=== PATIENT | female | born 1945 ===

== ENCOUNTER 2017-09-29 12:13 | Observation (INO) | payer MEDICARE ==
[2017-09-29] MEDS ORDERED: Sodium Chloride 0.9% 1,000 ML IV SCH ×2 (13:00→13:21)
[2017-09-29 13:16] LABS: HEMOGLOBIN 13.3 g/dL (12.0-16.0); MEAN CELL VOLUME 90.8 fl (81.0-99.0); RBC 4.44 Mil/uL (3.80-5.20); RED CELL DISTRIBUTION WIDTH 14.4 % (11.5-14.5); WHITE BLOOD COUNT 10.2 K/uL (4.8-10.8)
[2017-09-29 13:29] LABS: ALB/GLOB RATIO 1.2 (1.0-2.1); ALBUMIN 4.3 g/dL (3.5-5.0); ALT/SGPT 21 U/L (9-52); AST/SGOT 28 U/L (14-36); BLOOD UREA NITROGEN 16 mg/dl (7-17); CALCIUM 9.7 mg/dL (8.4-10.2); GFR AFRICAN-AMERICAN > 60; GFR NON-AFRICAN AMERICAN > 60
--- NOTE | 2017-09-29 13:41 | ED PDOC ---
Syncope/Near Syncope/Dizziness Time Seen by Provider: 09/29/17 12:31 Chief Complaint (Nursing): Dizziness/Lightheaded Chief Complaint (Provider): Patient complains of multiple episodes of dizziness , syncope and nausea History Per: Patient, Family History/Exam Limitations: no limitations Onset/Duration Of Symptoms: Intermittent Episodes Current Symptoms Are (Timing): Intermittent Episodes Current Symptoms: Lethargia and generalized weakness Number Of Syncopal Episodes: 3 Activity At Onset Of Symptoms: Walking, Had Just Stood up Associated Symptoms Preceding Syncopal Episode: Worse With Standing. denies: Vertigo Seizure Or Post-ictal Symptoms: None Possible Causative Factor(s): Lightheaded W/Standing, Lightheaded W/Exertion Fall Associated With With Symptoms: No Severity: Mild Pain Scale Rating Of: 0 Additional History Per: Patient, Family Additional Complaint(s): 72F with PMHx HTN presents to ED with her son and daughter complaining of multiple episodes of dizziness, syncope and associated vomiting. Patient states that she first began experiencing these episodes three weeks ago when she should stood up suddenly and immediately felt dizzy and nauseous. Patients states that she passed out but denies any falls. She states that she had a similar episode of dizziness, nausea and syncope three days ago while walking. She was seen at [facility] at that time and discharged with a diagnosis of vertigo and UTI. Patient experienced her third episode of the same symptoms this morning and was told by her primary to come to the hospital. She states that she is not currently feeling tired, dizzy or nauseous at this time. States that she feels tired and weak with some shortness of breath but denies any further complaints. Denies any dizziness with movement of head, chest pain, stomach pain, changes in urine or bowel movements. - Symptoms Of CVA Recent Aspirin Use: Yes (Last Taken) (09/28/17) - Risk Factors TAD Risk Factors: Pos: Hypertension Past Medical History Reviewed: Vital Signs Vital Signs: Last Vital Signs Temp 97.9 F 09/29/17 12:16 Pulse 74 09/29/17 12:16 Resp 16 09/29/17 12:16 BP 131/72 09/29/17 12:16 Pulse Ox 98 09/29/17 12:16 - Medical History PMH: Arthritis, HTN - Surgical History Surgical History: Appendectomy, Cholecystectomy - Family History Family History: States: Diabetes - Living Arrangements Living Arrangements: Alone - Social History Current smoker - smoking cessation education provided: No Alcohol: None Drugs: Denies - Allergies Allergies/Adverse Reactions: Allergies Allergy/AdvReac Type Severity Reaction Status Date / Time amoxicillin [From Augmentin] Allergy RASH Verified 09/29/17 12:15 ciprofloxacin [From Cipro] Allergy RASH Verified 09/29/17 12:15 clavulanic acid Allergy RASH Verified 09/29/17 12:15 [From Augmentin] Penicillins Allergy RASH Verified 09/29/17 12:15 Review of Systems ROS Statement: Except As Marked, All Systems Reviewed And Found Negative Constitutional: Positive for: Weakness, Malaise. Negative for: Fever Eyes: Negative for: Pain, Vision Change Cardiovascular: Positive for: Light Headedness. Negative for: Chest Pain Respiratory: Positive for: SOB with Exertion. Negative for: Cough, Hemoptysis, Wheezing Gastrointestinal: Positive for: Nausea, Vomiting. Negative for: Abdominal Pain , Diarrhea, Melena Genitourinary Female: Negative for: Dysuria, Incontinence, Hematuria, Vaginal Bleeding Musculoskeletal: Negative for: Neck Pain Skin: Negative for: Rash, Lesions Neurological: Positive for: Weakness, Dizziness. Negative for: Incoordination, Confusion, Altered Mental Status, Headache Physical Exam - Reviewed Vital Signs Reviewed: Yes - Physical Exam Appears: Positive for: Well, Non-toxic, Uncomfortable Head Exam: Positive for: ATRAUMATIC, NORMOCEPHALIC Skin: Positive for: Normal Color, Diaphoresis. Negative for: Pallor Eye Exam: Positive for: Normal appearance. Negative for: Periorbital tenderness ENT: Positive for: Normal ENT Inspection. Negative for: Nasal Congestion Neck: Positive for: Normal, Painless ROM Cardiovascular/Chest: Positive for: Regular Rate, Rhythm, Chest Non Tender. Negative for: JVD, Bradycardia, Tachycardia Respiratory: Positive for: Normal Breath Sounds. Negative for: Wheezing, Respiratory Distress Gastrointestinal/Abdominal: Positive for: Soft. Negative for: Tenderness, Distended, Guarding, Rebound Extremity: Positive for: Normal ROM, Capillary Refill. Negative for: Deformity Neurologic/Psych: Positive for: Alert, Oriented. Negative for: Motor/Sensory Deficits, Facial Droop - Laboratory Results Result Diagrams: 09/29/17 13:05 09/29/17 13:16 - ECG ECG: Positive for: Interpreted By Me ECG Rhythm: Positive for: Normal QRS, Normal ST Segment, Sinus Rhythm Rate: 64 O2 Sat by Pulse Oximetry: 98 Pulse Ox Interpretation: Normal Disposition - Clinical Impression Clinical Impression: Dizziness, Nausea & vomiting, Syncopal episodes - Disposition
--- NOTE | 2017-09-29 14:54 | CARD ---
APPROVED REPORT EKG Measurement Heart [id number] <Conclusion> Normal sinus rhythm Nonspecific T wave abnormality Abnormal ECG
--- NOTE | 2017-09-29 15:35 | ED PDOC ---
- Laboratory Results Result Diagrams: 09/29/17 13:05 09/29/17 13:16 - ECG O2 Sat by Pulse Oximetry: 98 Disposition - Clinical Impression Clinical Impression: Dizziness, Nausea & vomiting, Syncopal episodes - POA Present On Arrival: None - Disposition Disposition: Hospitalized as Observation Patient Disposition Time: 15:35 Condition: FAIR Forms: [facility] (Georgian)
--- NOTE | 2017-09-29 16:22 | CT ---
PROCEDURE: CT HEAD WITHOUT CONTRAST. HISTORY: dizziness and fainting COMPARISON: None available. TECHNIQUE: Axial computed tomography images were obtained through the head/brain without intravenous contrast. Radiation dose: Total exam DLP = 801.99 mGy-cm. This CT exam was performed using one or more of the following dose reduction techniques: Automated exposure control, adjustment of the mA and/or kV according to patient size, and/or use of iterative reconstruction technique. FINDINGS: HEMORRHAGE: No intracranial hemorrhage. BRAIN: Trace periventricular white matter lucency suggests chronic microangiopathy. Borderline dilatation of the ventricular sulcal sternal spaces reflects trace diffuse cerebral atrophy. Normal corticomedullary differentiation is identified and there is no suspicious extra-axial collection or mass effect. No suspicious cortical lucency identified. Posterior fossa contents are unremarkable including the brainstem with remaining midline brain anatomy unremarkable. VENTRICLES: Unremarkable. No hydrocephalus. CALVARIUM: Unremarkable. PARANASAL SINUSES: Unremarkable as visualized. No significant inflammatory changes. MASTOID AIR CELLS: Unremarkable as visualized. No inflammatory changes. OTHER FINDINGS: None. IMPRESSION: Minimal age related neuro degenerative findings without intracranial hemorrhage, mass effect, cortical edema or displaced fracture identified.
--- NOTE | 2017-09-29 16:33 | RAD ---
HISTORY: Shortness of breath. COMPARISON: No prior. TECHNIQUE: Chest PA and lateral FINDINGS: LUNGS: No active pulmonary disease. PLEURA: No significant pleural effusion identified. No pneumothorax apparent. CARDIOVASCULAR: No radiographic findings to suggest acute or significant cardiovascular disease. OSSEOUS STRUCTURES: No significant abnormalities. VISUALIZED UPPER ABDOMEN: Normal. OTHER FINDINGS: None. IMPRESSION: No active disease.
[2017-09-29 17:53] LABS: SQUAMOUS EPITHIAL 9 /hpf (0-5); URINE BACTERIA RARE (<OCC); URINE BILIRUBIN NEGATIVE (NEGATIVE); URINE BLOOD NEGATIVE (NEGATIVE); URINE CLARITY SLIGHTY-CLOUDY (Clear); URINE COLOR YELLOW (YELLOW); URINE GLUCOSE (UA) NEG (Normal); URINE LEUKOCYTE ESTERASE SMALL Leu/uL (Negative); URINE PROTEIN NEGATIVE (NEGATIVE); URINE UROBILINOGEN 0.2-1.0 mg/dL (0.2-1.0)
--- NOTE | 2017-09-29 18:09 | CP.PCM.CON ---
History of Present Illness - History of Present Illness History of Present Illness: Neurology Consultation Note: Mrs. Yi is a 72-year-old woman with a past medical history of HTN, HLD, who states that she has been having dizziness, nausea/vomiting for the past several days. She feels that the room is spinning on her. She is worse with standing up. There is no head position that makes it worse. She had a similar episode two years ago. CT head did not show any acute findings. Review of Systems - Review of Systems All systems: reviewed and no additional remarkable complaints except Past Patient History - Past Social History Alcohol: None Drugs: Denies - CARDIAC Hx Cardiac Disorders: Yes - NEUROLOGICAL Hx Neurological Disorder: Yes - MUSCULOSKELETAL/RHEUMATOLOGICAL Hx Arthritis: Yes - PSYCHIATRIC Hx Substance Use: No - SURGICAL HISTORY Hx Appendectomy: Yes Hx Cholecystectomy: Yes Meds Allergies/Adverse Reactions: Allergies Allergy/AdvReac Type Severity Reaction Status Date / Time amoxicillin [From Augmentin] Allergy RASH Verified 09/29/17 12:15 ciprofloxacin [From Cipro] Allergy RASH Verified 09/29/17 12:15 clavulanic acid Allergy RASH Verified 09/29/17 12:15 [From Augmentin] Penicillins Allergy RASH Verified 09/29/17 12:15 - Medications Medications: Current Medications Enoxaparin Sodium (Lovenox) 40 mg SC DAILY GABBY PRN Reason: Protocol Physical Exam - Neurological Exam Neurological exam: Abnormal Gait, Alert, CN II-XII Intact, Oriented x3, Reflexes Normal Additional comments: CN 2-12 intact, she had nystagmus on left lateral gaze with fast beat to the right. DHP showed nystagmus exacerbated on rising. Results - Vital Signs Recent Vital Signs: Last Vital Signs Temp 98.2 F 09/29/17 17:10 Pulse 67 09/29/17 17:10 Resp 16 09/29/17 17:10 BP 139/71 09/29/17 17:10 Pulse Ox 99 09/29/17 16:57 - Labs Result Diagrams: 09/29/17 13:05 09/29/17 13:16 Labs: Laboratory Results - last 24 hr 09/29/17 09/29/17 09/29/17 12:56 13:05 13:16 WBC 10.2 RBC 4.44 Hgb 13.3 Hct 40.3 MCV 90.8 MCH 30.0 MCHC 33.0 RDW 14.4 Plt Count 323 Sodium 139 Potassium 4.2 Chloride 101 Carbon Dioxide 28 Anion Gap 14 BUN 16 Creatinine 0.7 Est GFR ( Amer) > 60 Est GFR (Non-Af Amer) > 60 POC Glucose (mg/dL) 124 H Random Glucose 120 H Calcium 9.7 Total Bilirubin 0.4 AST 28 ALT 21 Alkaline Phosphatase 83 Ammonia Troponin I < 0.0120 Total Protein 8.0 Albumin 4.3 Globulin 3.7 Albumin/Globulin Ratio 1.2 Vitamin B12 TSH 3rd Generation 2.00 09/29/17 09/29/17 16:57 17:07 WBC RBC Hgb Hct MCV MCH MCHC RDW Plt Count Sodium Potassium Chloride Carbon Dioxide Anion Gap BUN Creatinine Est GFR ( Amer) Est GFR (Non-Af Amer) POC Glucose (mg/dL) Random Glucose Calcium Total Bilirubin AST ALT Alkaline Phosphatase Ammonia 17 Troponin I Total Protein Albumin Globulin Albumin/Globulin Ratio Vitamin B12 293 TSH 3rd Generation Assessment & Plan (1) Vertigo Assessment and Plan: Will start Valium 2 mg BID and obtain a CTA of the head/neck to rule out VBI. Vestibular rehab will also be recommended. Neurology will follow. Thank you. Status: Acute Priority: High
[2017-09-29] MEDS ORDERED: Sodium Chloride 0.9% 100 ML ONE (18:56)
[2017-09-29] MEDS ORDERED: Iodixanol 320 MG/ML 100 ML BOTTLE IV ONE (18:56)
[2017-09-29] MEDS: Enoxaparin 40 mg Syringe SC SCH (21:58)
[2017-09-30 06:40] LABS: BASO # 0.1 K/uL (0.0-0.2); BASO % 0.8 % (0.0-2.0); EOS # 0.2 K/uL (0.0-0.7); EOS % 2.9 % (0.0-4.0); HEMOGLOBIN 12.7 g/dL (12.0-16.0); LYMPH # 2.7 K/uL (1.0-4.3); LYMPH % 33.5 % (20.0-40.0); MEAN CELL VOLUME 90.5 fl (81.0-99.0); MEAN CORPUSCULAR HEMOGLOBIN 29.6 pg (27.0-31.0); MEAN CORPUSCULAR HGB CONC 32.8 g/dL (33.0-37.0); MEAN PLATELET VOLUME 9.3 fl (7.2-11.7); MONO # 0.7 K/uL (0.0-0.8); MONO % 9.2 % (0.0-10.0); NEUT # 4.3 K/uL (1.8-7.0); NEUT % 53.6 % (50.0-75.0); RBC 4.3 Mil/uL (3.80-5.20); RED CELL DISTRIBUTION WIDTH 14.4 % (11.5-14.5)
[2017-09-30 07:10] LABS: ALB/GLOB RATIO 1.1 (1.0-2.1); ALBUMIN 3.9 g/dL (3.5-5.0); ALT/SGPT 24 U/L (9-52); AMYLASE 60 U/L (30-110); AST/SGOT 54 U/L (14-36); BILIRUBIN,DIRECT 0.2 mg/ml (0.0-0.4); BLOOD UREA NITROGEN 15 mg/dl (7-17); CALCIUM 9.4 mg/dL (8.4-10.2); GFR AFRICAN-AMERICAN > 60; GFR NON-AFRICAN AMERICAN > 60; LIPASE 43 U/L (23-300)
--- NOTE | 2017-09-30 08:31 | US ---
PROCEDURE: Duplex ultrasound of the carotid and vertebral arteries. HISTORY: syncope COMPARISON: None available. TECHNIQUE: Grayscale and duplex Doppler evaluation of the cervical carotid and vertebral arteries were performed. The common carotid, carotid bifurcations and cervical ICA and proximal ECA were evaluated. The vertebral arteries were evaluated for gross patency and direction. FINDINGS: RIGHT CAROTID ARTERIES: Common Carotid Artery: Patent. Mild intimal thickening and scattered focal plaque. Carotid Bifurcation: Patent with mild intimal thickening. Internal Carotid Artery:Patent without significant narrowing Maximal flow velocity of 101.6 cm/s. External Carotid Artery (proximal branches): Patent. ICA/CCA Ratio: 1.1 LEFT CAROTID ARTERIES: Common Carotid Artery: Patent without significant focal narrowing. Mild intimal thickening. Carotid Bifurcation: Patent without significant focal narrowing. Internal Carotid Artery:Patent without significant focal narrowing. Maximal flow velocity of 104.8 cm/s. External Carotid Artery (proximal branches): Patent. ICA/CCA Ratio: 1.1 VERTEBRAL ARTERIES: Right Vertebral Artery: Patent. Antegrade flow. Left Vertebral Artery: Patent. Antegrade flow. OTHER FINDINGS: None. IMPRESSION: No hemodynamically significant stenosis identified in the extracranial internal carotid arteries. Please note that this report is in general agreement with the preliminary report provided by [facility].
[2017-09-30] MEDS: Enoxaparin 40 mg Syringe SC SCH (09:39)
--- NOTE | 2017-09-30 10:56 | CP.PCM.CON ---
History of Present Illness - History of Present Illness History of Present Illness: 72 y/o female admitted with vertigo Pt claims that she has had dizziness and a sense of fatigue for 3 weeks Was seen at [facility] 4 days ago and discharged she denies chest pain / SOB / AGUILAR / syncope EKG: normal Troponin: neg PMH: HTN Vertigo Past Patient History - Past Medical History & Family History Past Medical History?: Yes - Past Social History Alcohol: None Drugs: Denies - CARDIAC Hx Cardiac Disorders: Yes - PULMONARY Hx Respiratory Disorders: No - NEUROLOGICAL Hx Neurological Disorder: Yes - HEENT Hx HEENT Problems: No - RENAL Hx Chronic Kidney Disease: No - ENDOCRINE/METABOLIC Hx Endocrine Disorders: No - HEMATOLOGICAL/ONCOLOGICAL Hx Blood Disorders: No Hx AIDS: No Hx Human Immunodeficiency Virus (HIV): No - INTEGUMENTARY Hx Dermatological Problems: No - MUSCULOSKELETAL/RHEUMATOLOGICAL Hx Arthritis: Yes - GASTROINTESTINAL Hx Gastrointestinal Disorders: Yes Hx Ulcer: Yes - GENITOURINARY/GYNECOLOGICAL Hx Genitourinary Disorders: No - PSYCHIATRIC Hx Substance Use: No - SURGICAL HISTORY Hx Appendectomy: Yes Hx Cholecystectomy: Yes - ANESTHESIA Hx Anesthesia: Yes Hx Anesthesia Reactions: Yes (lowB/P) Hx Malignant Hyperthermia: No Has any member of the family had a problem w/ anesthesia?: No Meds Allergies/Adverse Reactions: Allergies Allergy/AdvReac Type Severity Reaction Status Date / Time amoxicillin [From Augmentin] Allergy RASH Verified 09/29/17 12:15 ciprofloxacin [From Cipro] Allergy RASH Verified 09/29/17 12:15 clavulanic acid Allergy RASH Verified 09/29/17 12:15 [From Augmentin] Penicillins Allergy RASH Verified 09/29/17 12:15 - Medications Medications: Current Medications Diazepam (Valium) 2 mg PO BID [facility] Last Admin: 09/30/17 08:54 Dose: Not Given Enoxaparin Sodium (Lovenox) 40 mg SC DAILY [facility] PRN Reason: Protocol Last Admin: 09/30/17 09:39 Dose: 40 mg Iohexol (Omnipaque 240 (50 Ml)) 50 ml PO ONCE ONE Stop: 09/30/17 12:01 Physical Exam - Constitutional Appears: Well - Head Exam Head Exam: NORMAL INSPECTION - Eye Exam Eye Exam: Normal appearance - ENT Exam ENT Exam: Normal Exam - Neck Exam Neck exam: Positive for: Normal Inspection - Respiratory Exam Respiratory Exam: NORMAL BREATHING PATTERN - Cardiovascular Exam Cardiovascular Exam: REGULAR RHYTHM Results - Vital Signs Recent Vital Signs: Last Vital Signs Temp 98.4 F 09/30/17 08:24 Pulse 91 H 09/30/17 08:24 Resp 20 09/30/17 08:24 BP 106/61 09/30/17 08:24 Pulse Ox 100 09/30/17 08:24 - Labs Result Diagrams: 09/30/17 05:50 09/30/17 05:50 Labs: Laboratory Results - last 24 hr 09/29/17 09/29/17 09/29/17 12:56 13:05 13:16 WBC 10.2 RBC 4.44 Hgb 13.3 Hct 40.3 MCV 90.8 MCH 30.0 MCHC 33.0 RDW 14.4 Plt Count 323 MPV Neut % (Auto) Lymph % (Auto) [place] % (Auto) Eos % (Auto) Baso % (Auto) Neut # (Auto) Lymph # (Auto) [place] # (Auto) Eos # (Auto) Baso # (Auto) Sodium 139 Potassium 4.2 Chloride 101 Carbon Dioxide 28 Anion Gap 14 BUN 16 Creatinine 0.7 Est GFR ( Amer) > 60 Est GFR (Non-Af Amer) > 60 POC Glucose (mg/dL) 124 H Random Glucose 120 H Calcium 9.7 Total Bilirubin 0.4 Direct Bilirubin AST 28 ALT 21 Alkaline Phosphatase 83 Ammonia Troponin I < 0.0120 Total Protein 8.0 Albumin 4.3 Globulin 3.7 Albumin/Globulin Ratio 1.2 Amylase Lipase Vitamin B12 Folate TSH 3rd Generation 2.00 Urine Color Urine Clarity Urine pH Ur Specific Manning Urine Protein Urine Glucose (UA) Urine Ketones Urine Blood Urine Nitrate Urine Bilirubin Urine Urobilinogen Ur Leukocyte Esterase Urine RBC (Auto) Urine Microscopic WBC Ur Squamous Epith Cells Urine Bacteria RPR 09/29/17 09/29/17 09/29/17 16:57 17:07 17:07 WBC RBC Hgb Hct MCV MCH MCHC RDW Plt Count MPV Neut % (Auto) Lymph % (Auto) [place] % (Auto) Eos % (Auto) Baso % (Auto) Neut # (Auto) Lymph # (Auto) [place] # (Auto) Eos # (Auto) Baso # (Auto) Sodium Potassium Chloride Carbon Dioxide Anion Gap BUN Creatinine Est GFR ( Amer) Est GFR (Non-Af Amer) POC Glucose (mg/dL) Random Glucose Calcium Total Bilirubin Direct Bilirubin AST ALT Alkaline Phosphatase Ammonia 17 Troponin I Total Protein Albumin Globulin Albumin/Globulin Ratio Amylase Lipase Vitamin B12 293 Folate 15.0 TSH 3rd Generation Urine Color Urine Clarity Urine pH Ur Specific Manning Urine Protein Urine Glucose (UA) Urine Ketones Urine Blood Urine Nitrate Urine Bilirubin Urine Urobilinogen Ur Leukocyte Esterase Urine RBC (Auto) Urine Microscopic WBC Ur Squamous Epith Cells Urine Bacteria RPR Nonreactive 09/29/17 09/30/17 09/30/17 17:07 04:20 05:50 WBC 8.0 RBC 4.30 Hgb 12.7 Hct 38.9 MCV 90.5 MCH 29.6 MCHC 32.8 L RDW 14.4 Plt Count 320 MPV 9.3 Neut % (Auto) 53.6 Lymph % (Auto) 33.5 Freestone % (Auto) 9.2 Eos % (Auto) 2.9 Baso % (Auto) 0.8 Neut # (Auto) 4.3 Lymph # (Auto) 2.7 Fre[place] # (Auto) 0.7 Eos # (Auto) 0.2 Baso # (Auto) 0.1 Sodium Potassium Chloride Carbon Dioxide Anion Gap BUN Creatinine Est GFR ( Amer) Est GFR (Non-Af Amer) POC Glucose (mg/dL) Random Glucose Calcium Total Bilirubin Direct Bilirubin AST ALT Alkaline Phosphatase Ammonia Troponin I < 0.0120 Total Protein Albumin Globulin Albumin/Globulin Ratio Amylase Lipase Vitamin B12 Folate TSH 3rd Generation Urine Color Yellow Urine Clarity Slighty-cloudy Urine pH 7.0 Ur Specific Manning 1.014 Urine Protein Negative Urine Glucose (UA) Neg Urine Ketones Negative Urine Blood Negative Urine Nitrate Negative Urine Bilirubin Negative Urine Urobilinogen 0.2-1.0 Ur Leukocyte Esterase Small Urine RBC (Auto) 3 Urine Microscopic WBC 3 Ur Squamous Epith Cells 9 H Urine Bacteria Rare RPR 09/30/17 05:50 WBC RBC Hgb Hct MCV MCH MCHC RDW Plt Count MPV Neut % (Auto) Lymph % (Auto) Freestone % (Auto) Eos % (Auto) Baso % (Auto) Neut # (Auto) Lymph # (Auto) [place] # (Auto) Eos # (Auto) Baso # (Auto) Sodium 137 Potassium 4.2 Chloride 103 Carbon Dioxide 25 Anion Gap 13 BUN 15 Creatinine 0.6 L Est GFR ( Amer) > 60 Est GFR (Non-Af Amer) > 60 POC Glucose (mg/dL) Random Glucose 119 H Calcium 9.4 Total Bilirubin 0.4 Direct Bilirubin 0.2 AST 54 H D ALT 24 Alkaline Phosphatase 84 Ammonia Troponin I Total Protein 7.4 Albumin 3.9 Globulin 3.5 Albumin/Globulin Ratio 1.1 Amylase 60 Lipase 43 Vitamin B12 Folate TSH 3rd Generation Urine Color Urine Clarity Urine pH Ur Specific Manning Urine Protein Urine Glucose (UA) Urine Ketones Urine Blood Urine Nitrate Urine Bilirubin Urine Urobilinogen Ur Leukocyte Esterase Urine RBC (Auto) Urine Microscopic WBC Ur Squamous Epith Cells Urine Bacteria RPR Assessment & Plan (1) Vertigo Assessment and Plan: Cardiac corado the pt appears stable Status: Acute Priority: High
[2017-09-30] MEDS ORDERED: Iohexol 240 (50 ml) PO ONE (12:00)
--- NOTE | 2017-09-30 12:16 | CT ---
PROCEDURE: CT Angiography of the neck with contrast HISTORY: Rule out VBI COMPARISON: None available. TECHNIQUE: Contiguous axial images of the neck were obtained from the level of the skull-base to the superior mediastinum in the arteriographic phase of enhancement. Coronal and sagittal reformats or also generated. CT angiography of the intracranial arteries was performed. Coronal and sagittal maximum intensity projection reformatted images were generated. IV contrast dose: 95 mL Radiation Dose - DLP: 766.3 mGy-cm This CT exam was performed using one or more of the following dose reduction techniques: Automated exposure control, adjustment of the mA and/or kV according to patient size, and/or use of iterative reconstruction technique. FINDINGS: RIGHT CAROTID ARTERIES: Common Carotid Artery: Normal. Carotid Bifurcation: Normal. Internal Carotid Artery:Normal. External Carotid Artery (proximal branches): Normal. LEFT CAROTID ARTERIES: Common Carotid Artery: Originates from the innominate artery and is patent. Carotid Bifurcation: Normal. Internal Carotid Artery:Normal. External Carotid Artery (proximal branches): Normal. VERTEBRAL ARTERIES: Right Vertebral Artery: Normal. Left Vertebral Artery: Normal. INTERNAL CEREBRAL ARTERIES: Unremarkable. The skull base, petrous, cavernous and supraclinoid segments are bilaterally widely patent. ANTERIOR CEREBRAL ARTERIES: Unremarkable. A1 and A2 segments are widely patent. Smaller distal branches unremarkable, as visualized. MIDDLE CEREBRAL ARTERIES: Unremarkable. M1 and M2 segments are widely patent. Perisylvian branches grossly symmetric. POSTERIOR CIRCULATION: Basilar Artery: Unremarkable. Distal Vertebral Arteries: Distal right vertebral artery demonstrates a 1 millimeter nodularity proximal to formation of the basilar artery. Posterior Cerebral Arteries: Unremarkable. Posterior Inferior Cerebellar Arteries: Unremarkable. Diminutive left posterior communicating artery. The right posterior communicating arteries not visualized. ANEURYSM/ VASCULAR MALFORMATIONS: No large aneurysms or vascular malformations noted. OTHER FINDINGS: None. IMPRESSION: 1 millimeter nodularity in the distal right vertebral artery proximal to the formation of the basilar artery. This is of unclear clinical significance or etiology. Otherwise unremarkable CT Angiography of the head and neck.
--- NOTE | 2017-09-30 15:44 | CP.PCM.PN ---
Subjective - Date & Time of Evaluation Date of Evaluation: 09/30/17 Time of Evaluation: 15:41 - Subjective Subjective: Mrs. Yi was seen and examined today at bedside. PT was present and helped with the examination with completing Sharonda Hallpike today and checking other vestibular function. She seems to be improved compared with yesterday, but did have about a 20 mm Hg drop in her BP from sitting to standing. Objective - Vital Signs/Intake and Output Vital Signs (last 24 hours): Temp Pulse Resp BP Pulse Ox 97.8 F 62 20 135/73 97 09/30/17 13:04 09/30/17 13:04 09/30/17 13:04 09/30/17 13:04 09/30/17 13:04 - Medications Medications: Current Medications Aspirin (Ecotrin) 81 mg PO DAILY GABBY Diazepam (Valium) 2 mg PO BID [facility] Last Admin: 09/30/17 08:54 Dose: Not Given Enoxaparin Sodium (Lovenox) 40 mg SC DAILY GABBY PRN Reason: Protocol Last Admin: 09/30/17 09:39 Dose: 40 mg Famotidine (Pepcid) 20 mg PO Q12 [facility]ABBY Hydrochlorothiazide (Hydrodiuril) 25 mg PO DAILY GABBY Lisinopril (Zestril) 20 mg PO DAILY GABBY Meclizine HCl (Antivert) 25 mg PO Q8 PRN PRN Reason: Dizziness [id number] Ethyl Esters (Lovaza) 1 gm PO DAILY GABBY Ondansetron HCl (Zofran Odt) 4 mg PO Q6 PRN PRN Reason: Nausea/Vomiting Trimethoprim/Sulfamethoxazole (Bactrim Ds Tab) 1 tab PO Q12 G[facility]BY PRN Reason: Protocol - Labs Labs: 09/30/17 05:50 09/30/17 05:50 - Neurological Exam Neurological Exam: Alert, Awake, CN II-XII Intact, Normal Gait, Oriented x3 Neuro motor strength exam: Left Upper Extremity: 4, Right Upper Extremity: 4, Left Lower Extremity: 4, Right Lower Extremity: 4 Additional comments: Nystagmus is improved. Assessment and Plan (1) Vertigo Assessment & Plan: Continue Valium 2 mg Q12 hours PRN vertigo and follow up with outpatient vestibular rehab. Consider tilt-table testing. No further recommendations at this time. Please provide my contact information for outpatient neurology follow-up. Thank you. Status: Acute
[2017-09-30] MEDS: Omega-3-Acid Ethyl Esters 1 GM Cap PO SCH (16:40)
--- NOTE | 2017-09-30 17:08 | CT ---
PROCEDURE: CT Abdomen and Pelvis with Oral contrast. HISTORY: abd pain COMPARISON: None. TECHNIQUE: Contiguous axial images of the abdomen and pelvis. Oral contrast was administered. No IV contrast given. Coronal and Sagittal reformats generated. Please note that due to lack oforal contrast, evaluation of bowel is limited. Radiation dose: Total exam DLP = 563.75 mGy-cm. This CT exam was performed using one or more of the following dose reduction techniques: Automated exposure control, adjustment of the mA and/or kV according to patient size, and/or use of iterative reconstruction technique. FINDINGS: LOWER THORAX: Unremarkable. LIVER: Unremarkable. No gross lesion or ductal dilatation. GALLBLADDER AND BILE DUCTS: Unremarkable. PANCREAS: Unremarkable. No mass. No ductal dilatation. SPLEEN: Unremarkable. No splenomegaly. ADRENALS: Nodularity left adrenal gland. KIDNEYS AND URETERS: Unremarkable. No stone or hydronephrosis. BLADDER: Grossly unremarkable. REPRODUCTIVE: There is a cystic structure in the right adnexa measuring approximately 4.2 x 6.3 x 5 centimeters with a punctate peripheral calcification. The internal attenuation of the structure is approximately 10 Hounsfield units. Although this is simple fluid in attenuation, MRI of the pelvis with intravenous contrast (if tolerated by the patient and if there are no contraindications) be obtained for further characterization. No suspicious left adnexal lesions. The uterus is grossly unremarkable. Thickening of the vaginal wall. APPENDIX: Not clearly seen. No CT evidence of acute appendicitis. BOWEL: No bowel obstruction. Extensive diverticulosis without evidence of diverticulitis. Oral contrast has reached the rectum at the time of evaluation. Duodenal diverticulum. Intraluminal mass like structure within the cecum. Asymmetric thickening of the gastroesophageal junction, underlying mass can't be excluded. Upper endoscopy recommended. PERITONEUM: Unremarkable. No fluid collection. No free air. LYMPH NODES: Unremarkable. No enlarged lymph nodes. VASCULATURE: No aneurysmal dilatation of the aorta. Scattered atherosclerotic calcification throughout the abdominal aorta and its main branches. BONES: Degenerative changes of the lumbar spine. OTHER FINDINGS: Popcorn calcification in the left breast. IMPRESSION: Diverticulosis without evidence of acute diverticulitis. Intraluminal mass like structure in the cecum. Colonoscopy recommended for further evaluation. Asymmetric thickening of the gastroesophageal junction. Underlying mass cannot be excluded. Upper endoscopy recommended. Thickening of the vaginal vault. Pelvic ultrasound recommended. Cystic structure in the right adnexa measuring approximately 4.2 x 6.3 x 5 centimeters with internal simple fluid attenuation. MRI of the pelvis with intravenous contrast (if there are no contraindications) should be obtained for better characterization of the lesion. Popcorn type calcification of the left breast. Pelvis mammography recommended if not already performed.
--- NOTE | 2017-09-30 19:47 | CP.PCM.PN ---
Subjective - Subjective Subjective: improving on present rx. Several finding in ct scan will follow recommenced tests an GI consult Objective - Vital Signs/Intake and Output Vital Signs (last 24 hours): Temp Pulse Resp BP Pulse Ox 97.9 F 67 18 131/76 97 09/30/17 16:10 09/30/17 16:40 09/30/17 16:10 09/30/17 16:40 09/30/17 16:10 - Medications Medications: Current Medications Aspirin (Ecotrin) 81 mg PO DAILY COUNTS INCLUDE 234 BEDS AT THE [facility] Last Admin: 09/30/17 16:39 Dose: 81 mg Diazepam (Valium) 2 mg PO BID COUNTS INCLUDE 234 BEDS AT THE [facility] Last Admin: 09/30/17 08:54 Dose: Not Given Enoxaparin Sodium (Lovenox) 40 mg SC DAILY COUNTS INCLUDE 234 BEDS AT THE [facility] PRN Reason: Protocol Last Admin: 09/30/17 09:39 Dose: 40 mg Famotidine (Pepcid) 20 mg PO Q12 COUNTS INCLUDE 234 BEDS AT THE [facility] Last Admin: 09/30/17 16:38 Dose: 20 mg Hydrochlorothiazide (Hydrodiuril) 25 mg PO DAILY COUNTS INCLUDE 234 BEDS AT THE [facility] Last Admin: 09/30/17 16:40 Dose: 25 mg Lisinopril (Zestril) 20 mg PO DAILY COUNTS INCLUDE 234 BEDS AT THE [facility] Last Admin: 09/30/17 16:40 Dose: 20 mg Meclizine HCl (Antivert) 25 mg PO Q8 PRN PRN Reason: Dizziness Foghg-0-Hnee Ethyl Esters (Lovaza) 1 gm PO DAILY COUNTS INCLUDE 234 BEDS AT THE [facility] Last Admin: 09/30/17 16:40 Dose: 1 gm Ondansetron HCl (Zofran Odt) 4 mg PO Q6 PRN PRN Reason: Nausea/Vomiting Trimethoprim/Sulfamethoxazole (Bactrim Ds Tab) 1 tab PO Q12 COUNTS INCLUDE 234 BEDS AT THE [facility] PRN Reason: Protocol - Labs Labs: 09/30/17 05:50 09/30/17 05:50 - Constitutional Appears: Chronically Ill - Head Exam Head Exam: ATRAUMATIC, NORMAL INSPECTION
--- NOTE | 2017-09-30 19:54 | CP.PCM.HP ---
History of Present Illness - History of Present Illness History of Present Illness: Patient presented with severe vertigo, weakness not able to ambulate, abd pain nausea, vomiting. At present improving on present rx. A ct scan of abd was performed and reveled several abnormalitues with mass in the colon, suspicius cystic lesion in the pelvis, possible mass in the esophagus andd lesion in the breast. Will follow further tests for evaluation of this conditions. will follow GI consult. If patient progress to improve and hemodynamical stable will dc in AM and will f/o as OP. Present on Admission - Present on Admission Any Indicators Present on Admission: No Review of Systems - Constitutional Constitutional: Fatigue, Weakness - EENT Eyes: As Per HPI Nose/Mouth/Throat: As Per HPI - Cardiovascular Cardiovascular: As Per HPI - Respiratory Respiratory: As Per HPI - Gastrointestinal Gastrointestinal: Abdominal Pain, Dyspepsia - Musculoskeletal Musculoskeletal: As Per HPI - Neurological Neurological: Dizziness, Vertigo, Weakness - Psychiatric Psychiatric: Anxiety Past Patient History - Past Medical History & Family History Past Medical History?: Yes - Past Social History Alcohol: None Drugs: Denies - CARDIAC Hx Cardiac Disorders: Yes - PULMONARY Hx Respiratory Disorders: No - NEUROLOGICAL Hx Neurological Disorder: Yes - HEENT Hx HEENT Problems: No - RENAL Hx Chronic Kidney Disease: No - ENDOCRINE/METABOLIC Hx Endocrine Disorders: No - HEMATOLOGICAL/ONCOLOGICAL Hx Blood Disorders: No Hx AIDS: No Hx Human Immunodeficiency Virus (HIV): No - INTEGUMENTARY Hx Dermatological Problems: No - MUSCULOSKELETAL/RHEUMATOLOGICAL Hx Arthritis: Yes - GASTROINTESTINAL Hx Gastrointestinal Disorders: Yes Hx Ulcer: Yes - GENITOURINARY/GYNECOLOGICAL Hx Genitourinary Disorders: No - PSYCHIATRIC Hx Substance Use: No - SURGICAL HISTORY Hx Appendectomy: Yes Hx Cholecystectomy: Yes - ANESTHESIA Hx Anesthesia: Yes Hx Anesthesia Reactions: Yes (lowB/P) Hx Malignant Hyperthermia: No Has any member of the family had a problem w/ anesthesia?: No Meds Allergies/Adverse Reactions: Allergies Allergy/AdvReac Type Severity Reaction Status Date / Time amoxicillin [From Augmentin] Allergy RASH Verified 09/29/17 12:15 ciprofloxacin [From Cipro] Allergy RASH Verified 09/29/17 12:15 clavulanic acid Allergy RASH Verified 09/29/17 12:15 [From Augmentin] Penicillins Allergy RASH Verified 09/29/17 12:15 Physical Exam - Constitutional Appears: Chronically Ill - Head Exam Head Exam: ATRAUMATIC, NORMAL INSPECTION, NORMOCEPHALIC - Eye Exam Eye Exam: Normal appearance - Neck Exam Neck exam: Positive for: Full Rom - Respiratory Exam Respiratory Exam: Clear to Auscultation Bilateral - Cardiovascular Exam Cardiovascular Exam: REGULAR RHYTHM, +S1, +S2 - GI/Abdominal Exam GI & Abdominal Exam: Normal Bowel Sounds - Neurological Exam Neurological exam: Abnormal Gait, Alert, CN II-XII Intact, Oriented x3 - Psychiatric Exam Psychiatric exam: Anxious - Skin Skin Exam: Dry Results - Vital Signs Recent Vital Signs: Last Vital Signs Temp 97.9 F 09/30/17 16:10 Pulse 67 09/30/17 16:40 Resp 18 09/30/17 16:10 BP 131/76 09/30/17 16:40 Pulse Ox 97 09/30/17 16:10 - Labs Result Diagrams: 09/30/17 05:50 09/30/17 05:50 Labs: Laboratory Results - last 24 hr 09/29/17 09/29/17 09/30/17 16:57 17:07 04:20 WBC RBC Hgb Hct MCV MCH MCHC RDW Plt Count MPV Neut % (Auto) Lymph % (Auto) Mayes % (Auto) Eos % (Auto) Baso % (Auto) Neut # (Auto) Lymph # (Auto) Mayes # (Auto) Eos # (Auto) Baso # (Auto) Sodium Potassium Chloride Carbon Dioxide Anion Gap BUN Creatinine Est GFR ( Amer) Est GFR (Non-Af Amer) Random Glucose Calcium Total Bilirubin Direct Bilirubin AST ALT Alkaline Phosphatase Troponin I < 0.0120 Total Protein Albumin Globulin Albumin/Globulin Ratio Amylase Lipase Folate 15.0 RPR Nonreactive 09/30/17 09/30/17 05:50 05:50 WBC 8.0 RBC 4.30 Hgb 12.7 Hct 38.9 MCV 90.5 MCH 29.6 MCHC 32.8 L RDW 14.4 Plt Count 320 MPV 9.3 Neut % (Auto) 53.6 Lymph % (Auto) 33.5 Mayes % (Auto) 9.2 Eos % (Auto) 2.9 Baso % (Auto) 0.8 Neut # (Auto) 4.3 Lymph # (Auto) 2.7 Mayes # (Auto) 0.7 Eos # (Auto) 0.2 Baso # (Auto) 0.1 Sodium 137 Potassium 4.2 Chloride 103 Carbon Dioxide 25 Anion Gap 13 BUN 15 Creatinine 0.6 L Est GFR ( Amer) > 60 Est GFR (Non-Af Amer) > 60 Random Glucose 119 H Calcium 9.4 Total Bilirubin 0.4 Direct Bilirubin 0.2 AST 54 H D ALT 24 Alkaline Phosphatase 84 Troponin I Total Protein 7.4 Albumin 3.9 Globulin 3.5 Albumin/Globulin Ratio 1.1 Amylase 60 Lipase 43 Folate RPR Assessment & Plan (1) Colonic mass Status: Suspected (2) Esophageal mass Status: Suspected (3) Pelvic mass Status: Suspected (4) Breast mass Status: Acute (5) Dizziness Status: Acute (6) Nausea & vomiting Status: Acute (7) Syncopal episodes Status: Acute (8) Vertigo Status: Acute Priority: High - Assessment and Plan (Free Text) Plan: Continue present rx.
[2017-09-30] MEDS: Tmp-Smz 800 mg-160 mg DS Tab PO SCH (21:21)
[2017-10-01] MEDS: Tmp-Smz 800 mg-160 mg DS Tab PO SCH (09:22)
[2017-10-01] MEDS: Omega-3-Acid Ethyl Esters 1 GM Cap PO SCH (09:22)
[2017-10-01] MEDS: Enoxaparin 40 mg Syringe SC SCH (09:24)
[2017-10-01] MEDS ORDERED: Gadodiamide 287 MG/ML VIAL (15ML) IV ONE (12:11)
--- NOTE | 2017-10-01 13:25 | CARD ---
APPROVED REPORT EXAM: Two-dimensional and M-mode echocardiogram with Doppler and color Doppler. Other Information Quality : GoodRhythm : NSR INDICATION Syncope 2D DIMENSIONS IVSd0.95 (0.7-1.1cm)LVDd3.88 (3.9-5.9cm) LVOT Diameter1.88 (1.8-2.4cm)PWd0.97 (0.7-1.1cm) IVSs1.29 (0.8-1.2cm)LVDs2.81 (2.5-4.0cm) FS (%) 27.6 %PWs1.15 (0.8-1.2cm) M-Mode DIMENSIONS Left Atrium (MM)3.79 (2.5-4.0cm)IVSd0.88 (0.7-1.1cm) Aortic Root2.97 (2.2-3.7cm)LVDd5.32 (4.0-5.6cm) Aortic Cusp Exc.2.00 (1.5-2.0cm)PWd1.00 (0.7-1.1cm) IVSs1.24 cmFS (%) 39 % LVDs3.24 (2.0-3.8cm)PWs1.18 cm Mitral Valve MV E Utpfrito63.2cm/sMV DECEL [id number] A Dasukfum63.2cm/s MV [id number]/A ratio0.6MVA (PHT)2.41cm2 TDI Lateral E' Peak V8.31cm/sMedial E' Peak V5.13cm/sE/Lateral E'5.4 E/Medial E'8.8 Pulmonary Valve PV Peak Oonkenzx618.5cm/s LEFT VENTRICLE The left ventricle is normal size. There is normal left ventricular wall thickness. The left ventricular function is normal. The left ventricular ejection fraction is within the normal range. LVEF 65% There is normal LV segmental wall motion. The left ventricular diastolic function is normal. No left ventricle thrombus noted on this study. There is no ventricular septal defect visualized. There is no left ventricular aneurysm. There is no mass noted in the left ventricle. RIGHT VENTRICLE The right ventricle is normal size. There is normal right ventricular wall thickness. The right ventricular systolic function is normal. ATRIA The left atrium size is normal. The right atrium size is normal. The interatrial septum is intact with no evidence for an atrial septal defect. AORTIC VALVE The aortic valve is normal in structure. No aortic regurgitation is present. There is no aortic valvular stenosis. There is no aortic valvular vegetation. MITRAL VALVE The mitral valve is normal in structure. There is no evidence of mitral valve prolapse. There is no mitral valve stenosis. There is no mitral valve regurgitation noted. TRICUSPID VALVE The tricuspid valve is normal in structure. There is no tricuspid valve regurgitation noted. There is no tricuspid valve prolapse or vegetation. There is no tricuspid valve stenosis. PULMONIC VALVE The pulmonary valve is normal in structure. There is no pulmonic valvular regurgitation. There is no pulmonic valvular stenosis. GREAT VESSELS The aortic root is normal in size. The IVC is normal in size and collapses >50% with inspiration. PERICARDIAL EFFUSION The pericardium appears normal. <Conclusion> The left ventricle is normal size. There is normal left ventricular wall thickness. The left ventricular function is normal. The left ventricular ejection fraction is within the normal range. LVEF 65% The aortic valve is normal in structure.
--- NOTE | 2017-10-01 16:03 | MRI ---
PROCEDURE: MRI pelvis with and without gadolinium HISTORY: pelvic mass COMPARISON: CT abdomen/pelvis 09/30/2017 TECHNIQUE: Multi sequence, multi planar imaging of the pelvis was performed both with and without intravenous gadolinium administration. FINDINGS: The uterus is normal in size. There is a left lower uterine segment intramural fibroid, 1.4 cm. No other discrete uterine mass is identified. The junctional zone is thin. The endometrium is unremarkable. It measures roughly 3 mm in width. There is no endometrial fluid. The cervix is unremarkable in appearance. The vagina is unremarkable. There is a multilocular cystic right adnexal mass measuring approximately 3.8 by 6.7 x 5.1 cm. There is no solid component appreciated. There is no mural enhancement appreciated following gadolinium administration. The left ovary is atrophic and unremarkable in appearance. Please note that on transvaginal pelvic ultrasound of 01/18/2008, there was a septated cystic right adnexal mass measuring 5.0 cm in greatest dimension. There was no solid component evident at that time. There is no pelvic sidewall lymphadenopathy. The urinary bladder is poorly distended. No gross abnormality is identified. There is no ascites. The marrow signal of the visualized osseous structures is within normal limits. IMPRESSION: Multilocular cystic right adnexal mass, 6.7 cm in greatest dimension. This has increased mildly in size when compared to ultrasound examination of 01/18/2008. No solid component and no significant enhancement demonstrated. Given the minimal interval change since 2007, likely benign. Nevertheless, followup is advised. Follow-up can likely be performed with ultrasound examination, in 3-6 months.
--- NOTE | 2017-10-01 19:52 | CP.PCM.PN ---
Subjective - Date & Time of Evaluation Date of Evaluation: 10/01/17 Time of Evaluation: 19:53 - Subjective Subjective: Patient comfortable, well responding to Rx. Will follow with GI as OP for further dx and rx . Mammogram as OP. DC home. F/U in my office in 4 days. Objective - Vital Signs/Intake and Output Vital Signs (last 24 hours): Temp Pulse Resp BP Pulse Ox 98.6 F 81 18 102/63 97 10/01/17 16:06 10/01/17 16:06 10/01/17 16:06 10/01/17 16:06 10/01/17 16:06 - Medications Medications: Current Medications Aspirin (Ecotrin) 81 mg PO DAILY [facility] Last Admin: 10/01/17 09:24 Dose: 81 mg Diazepam (Valium) 2 mg PO BID [facility] Last Admin: 10/01/17 17:23 Dose: 2 mg Enoxaparin Sodium (Lovenox) 40 mg SC DAILY [facility] PRN Reason: Protocol Last Admin: 10/01/17 09:24 Dose: 40 mg Famotidine (Pepcid) 20 mg PO Q12 [facility] Last Admin: 10/01/17 09:22 Dose: 20 mg Hydrochlorothiazide (Hydrodiuril) 25 mg PO DAILY [facility] Last Admin: 10/01/17 09:24 Dose: 25 mg Lisinopril (Zestril) 20 mg PO DAILY [facility] Last Admin: 10/01/17 09:22 Dose: 20 mg Meclizine HCl (Antivert) 25 mg PO Q8 PRN PRN Reason: Dizziness Afukq-2-Pwco Ethyl Esters (Lovaza) 1 gm PO DAILY [facility] Last Admin: 10/01/17 09:22 Dose: 1 gm Ondansetron HCl (Zofran Odt) 4 mg PO Q6 PRN PRN Reason: Nausea/Vomiting Trimethoprim/Sulfamethoxazole (Bactrim Ds Tab) 1 tab PO Q12 [facility] PRN Reason: Protocol Last Admin: 10/01/17 09:22 Dose: 1 tab - Labs Labs: 09/30/17 05:50 09/30/17 05:50 - Constitutional Appears: Non-toxic - Head Exam Head Exam: ATRAUMATIC, NORMAL INSPECTION, NORMOCEPHALIC - Eye Exam Eye Exam: Normal appearance - ENT Exam ENT Exam: Mucous Membranes Moist - Neck Exam Neck Exam: Full ROM - Respiratory Exam Respiratory Exam: Clear to Ausculation Bilateral - Cardiovascular Exam Cardiovascular Exam: REGULAR RHYTHM, +S1, +S2 - GI/Abdominal Exam GI & Abdominal Exam: Soft, Normal Bowel Sounds - Extremities Exam Extremities Exam: Full ROM - Neurological Exam Neurological Exam: Alert, Awake, CN II-XII Intact, Normal Gait, Oriented x3 - Psychiatric Exam Psychiatric exam: Normal Affect - Skin Skin Exam: Normal Color Assessment and Plan (1) Breast mass Status: Suspected (2) Dizziness Status: Acute (3) Nausea & vomiting Status: Resolved (4) Syncopal episodes Status: Ruled-out (5) Vertigo Status: Acute (6) Colonic mass Status: Suspected (7) Esophageal mass Status: Suspected (8) Pelvic mass Status: Suspected - Assessment and Plan (Free Text) Plan: DC home f/u as OP
[2017-10-01 20:09] VITALS: BP 125/69; RESP 16; TEMP 98.1; O2SAT 96
[2017-10-01 21:09] VITALS: PULSE 66
--- NOTE | 2017-10-02 08:27 | CON ---
DATE: 10/01/2017 REASON FOR CONSULTATION: CT findings. HISTORY OF PRESENT ILLNESS: This is a pleasant 72-year-old female vertigo, dizziness, nausea, and vomiting . GI was called because of CAT scans show multiple findings including cystic lesions in the pelvis and possible mass in the esophagus. The patient has no GI complaints but she had nausea and vomiting, which is also resolved, but still present. Denies any weight loss. five years ago which was at the office records. Currently lying in bed comfortably, in no apparent distress. PAST MEDICAL HISTORY: As above. PAST SURGICAL HISTORY: As above. MEDICATIONS: Reviewed. REVIEW OF SYSTEMS: All other systems have been reviewed and negative apart from the HPI. PHYSICAL EXAMINATION: VITAL SIGNS: Here in the hospital are grossly unremarkable. GENERAL: A pleasant elderly appearing female, lying in bed comfortably, and in no apparent distress. HEENT: Head is normocephalic and atraumatic. Eyes: Pupils are equally reactive to light bilaterally. No conjunctival pallor or icterus. NECK: Supple. Normal range of motion. No lymphadenopathy appreciated. LUNGS: Coarse breath sounds bilaterally. HEART: S1 and S2, regular rate and rhythm. No murmurs appreciated. ABDOMEN: Soft and nontender. Bowel sounds are present. No rebound. No guarding. RECTAL: Deferred. EXTREMITIES: Pulses present bilaterally. SKIN: Warm, dry and intact. NEUROLOGIC: A and O x3. LABORATORY DATA: Labs and radiology have been reviewed. WBC of 8.9, hemoglobin of 12.3, and hematocrit 38.9. LFTs are essentially unremarkable. A CT was performed with abdomen and pelvis, and this was done with p.o. contrast only. A 4 x 6 cm cystic lesion in the right adnexa, thickening of the vaginal wall, calcification of the left breast, diverticulosis, questionable mass on the cecum, thickened GE junction. ASSESSMENT AND PLAN: This is a 72-year-old female with nausea, vomiting, and dizziness and now with abnormal CT findings. From GI standpoint, I have reviewed all records. After imaging, we would repeat a CT with p.o. and IV contrast if possible and colonoscopy. All of this could be done as an outpatient GI complaints. H2 blockers for now. Advance diet as tolerated. Further workup with primary care team. Thank you for the consult. Navneet Mcgee MD/ PhD
== END 2017-10-01 21:11 | disposition home or self-care (01) ==
LOC: H.ER 12:13 → H.ERHOLD 15:33 → H.TEL 17:39
PROVIDERS: ADMIT Internal Medicine; ATTEND Internal Medicine
DX: R42 Dizziness and giddiness (principal); N39.0 Urinary tract infection, site not specified; I10 Essential (primary) hypertension; H55.00 Unspecified nystagmus; K22.8 Other specified diseases of esophagus; R11.2 Nausea with vomiting, unspecified; N63.0 Unspecified lump in unspecified breast; E11.9 Type 2 diabetes mellitus without complications; E78.5 Hyperlipidemia, unspecified; Z90.49 Acquired absence of other specified parts of digestive tract; Z88.1 Allergy status to other antibiotic agents; Z88.0 Allergy status to penicillin
CPT/HCPCS: 36415; 70450; 70496; 70498; 71046; 72197; 74176; 80048; 80053; 80076; 81003; 82140; 82150; 82378; 82607; 82746; 82948; 83690; 84443; 84484; 85025; 85027; 86592; 93005; 93306; 93880; 97112; 97162; 99285; A9579; G0328; G0378; G8978; G8979; J1650; J7030; Q9966; Q9967

== ENCOUNTER 2017-10-19 08:58 | Day surgery (SDC) | payer MEDICARE ==
[2017-10-19 11:40] VITALS: BMI 27.1
[2017-10-19] MEDS ORDERED: Lactated Ringer's 500 ML IV ONE (11:42)
[2017-10-19] MEDS ORDERED: Propofol 10 mg/ml Inj (20 ML) ONE (12:41)
[2017-10-19 13:15] VITALS: TEMP 97
[2017-10-19 13:32] VITALS: BP 118/56; PULSE 56; RESP 13; O2SAT 99
== END 2017-10-19 14:07 | disposition home or self-care (01) ==
LOC: H.ENDO 08:58
PROVIDERS: ATTEND Internal Medicine Gastroenterology
DX: K64.8 Other hemorrhoids (principal); R93.3 Abnormal findings on diagnostic imaging of other parts of digestive tract; K57.30 Diverticulosis of large intestine without perforation or abscess without bleeding; E78.5 Hyperlipidemia, unspecified; I10 Essential (primary) hypertension; K29.50 Unspecified chronic gastritis without bleeding; K44.9 Diaphragmatic hernia without obstruction or gangrene; R12 Heartburn; R10.13 Epigastric pain
CPT/HCPCS: 43239; 45378; 88305; J2001; J2704; J7120